=== PATIENT | female | born 1970 | race Caucasian/White ===

== ENCOUNTER 2024-05-23 12:32 | Inpatient (IN) | payer OTHER ==
[~2024-05-23] VITALS: Ht 157.5 cm; Wt 109.3 kg
[2024-05-23 12:37] VITALS: BP 168/126
[2024-05-23 12:57] LABS: BASO % 0.4 % (0.0-1.0); EOS % 0.2 % (1.0-4.0); HEMATOCRIT 46.9 % (37.0-47.0); MEAN CELL VOLUME 87.2 fl (81.0-99.0); MEAN CORPUSCULAR HGB 28.1 pg (27.0-31.0); MEAN CORPUSCULAR HGB CONC 32.2 g/dl (33.0-37.0); MEAN PLATELET VOLUME 9.9 fl (9.6-12.3); MONO # 0.9 10*3/uL (0.1-1.0); MONO % 15.4 % (3.0-9.0); NEUT # 3.4 10*3/uL (2.3-7.9); NEUT % 61.9 % (47.0-73.0); PLATELET COUNT AUTOMATED 295 10*3/uL (130-400); RED BLOOD COUNT 5.38 10*6/uL (4.10-5.10); WHITE BLOOD COUNT 5.5 10*3/uL (4.8-10.8)
[2024-05-23 13:23] LABS: POTASSIUM 2.9 mmol/L (3.4-5.1); TOTAL PROTEIN 7.8 gm/dL (6.0-8.0)
[2024-05-23] MEDS ORDERED: POTASSIUM CHLORIDE 20 MEQ TAB PO ONE (13:40)
[2024-05-23] MEDS ORDERED: Ampicillin Sodium/Sulbactam 3 GM in SODIUM CHLORIDE 0.9% 100 ML IV ONE (14:00)
[2024-05-23] MEDS ORDERED: Ceftriaxone Sodium 1 GM/10 ML SYR IV ONE (14:05)
[2024-05-23] MEDS ORDERED: ASPIRIN ADULT L81 M1 PO (15:03)
[2024-05-23] MEDS ORDERED: VITAMIN D31250 MC2 PO (15:04)
[2024-05-23] MEDS ORDERED: PAROXETINE20 MG PO (15:04)
[2024-05-23] MEDS ORDERED: BISACODYL 10 MG SUPP R PRN (15:05)
[2024-05-23] MEDS ORDERED: Acetaminophen/Hydrocodone 5 MG/325 MG TABLET PO PRN (15:05)
[2024-05-23] MEDS ORDERED: Ondansetron Hydrochloride 4 MG/2 ML VIAL IV PRN (15:05)
[2024-05-23] MEDS ORDERED: Magnesium Hydroxide 30 ML UDC PO PRN (15:05)
[2024-05-23] MEDS ORDERED: MELATONIN ER10 MG PO (15:05)
[2024-05-23] MEDS ORDERED: COZAAR25 M1 PO (15:05)
[2024-05-23] MEDS ORDERED: MEDI-LYTE TABL1 EACH PO (15:05)
[2024-05-23] MEDS ORDERED: ACETAMINOPHEN 325 MG TAB PO PRN (15:05)
[2024-05-23] MEDS ORDERED: ACETAMINOPHEN 650 MG SUPP R PRN (15:05)
[2024-05-23] MEDS ORDERED: BISACODYL 5 MG TAB PO PRN (15:05)
[2024-05-23] MEDS ORDERED: SINGULAIR10 M1 PO (15:06)
[2024-05-23] MEDS ORDERED: PREMPRO 0.625-1 EACH PO (15:07)
[2024-05-23] MEDS ORDERED: ROSUVASTATIN CA40 MG PO (15:07)
[2024-05-23] MEDS ORDERED: SODIUM CHLORIDE 0.9% 1,000 ML IV SCH (15:15)
[2024-05-23] MEDS ORDERED: METRONIDAZOLE 500 MG TAB PO SCH (15:20)
[2024-05-23] MEDS ORDERED: CIPROFLOXACIN 200 ML IV SCH (15:35)
[2024-05-23 16:06] VITALS: BP 90/50
[2024-05-23 21:46] VITALS: BP 96/42
[2024-05-24 04:51] LABS: POTASSIUM 3.7 mmol/L (3.4-5.1); TOTAL PROTEIN 6.7 gm/dL (6.0-8.0)
[2024-05-24 06:09] VITALS: BP 136/68
[2024-05-24 06:26] LABS: BASO % 0.2 % (0.0-1.0); HEMATOCRIT 40.7 % (37.0-47.0); MEAN CELL VOLUME 87.2 fl (81.0-99.0); MEAN CORPUSCULAR HGB 27.8 pg (27.0-31.0); MEAN CORPUSCULAR HGB CONC 31.9 g/dl (33.0-37.0); MEAN PLATELET VOLUME 10.4 fl (9.6-12.3); MONO # 0.7 10*3/uL (0.1-1.0); MONO % 16.3 % (3.0-9.0); NEUT # 2.2 10*3/uL (2.3-7.9); PLATELET COUNT AUTOMATED 264 10*3/uL (130-400); RED BLOOD COUNT 4.67 10*6/uL (4.10-5.10); RED CELL DISTRI WIDTH 12.8 % (0-14.5); WHITE BLOOD COUNT 4.2 10*3/uL (4.8-10.8)
[2024-05-24] MEDS ORDERED: PREDNISONE10 MG PO (07:40)
[2024-05-24] MEDS ORDERED: CLEOCIN HCL150 MG PO (07:40)
[2024-05-24 08:31] LABS: VITAMIN D, 25-HYDROXY 77.3 ng/mL (30-100)
[2024-05-24] MEDS ORDERED: Montelukast Sodium 10 MG TAB PO SCH (10:00)
[2024-05-24] MEDS ORDERED: Losartan Potassium 25 MG TAB PO SCH (10:00)
[2024-05-24] MEDS ORDERED: ASPIRIN, CHEWABLE 81 MG TAB PO SCH (10:00)
[2024-05-24] MEDS ORDERED: Enoxaparin Sodium 40 MG/0.4 ML SYR SC SCH (10:00)
[2024-05-24] MEDS ORDERED: Rosuvastatin Calcium 10 MG TABLET PO SCH (10:00)
== END 2024-05-24 07:52 | disposition home or self-care (01) | DRG 157 ==
LOC: ED 12:32 → EDBD 12:42 → EDHOLD 14:15
PROVIDERS: Emergency Medicine; Student in an Organized Health Care Education/Training Program; ADMIT Internal Medicine; ATTEND Internal Medicine
DX: K12.2 Cellulitis and abscess of mouth (principal); N17.0 Acute kidney failure with tubular necrosis; G90.89 Other disorders of autonomic nervous system; J01.00 Acute maxillary sinusitis, unspecified; S00.83XA Contusion of other part of head, initial encounter; D75.1 Secondary polycythemia; G90.9 Disorder of the autonomic nervous system, unspecified; I10 Essential (primary) hypertension; E86.0 Dehydration; W18.39XA Other fall on same level, initial encounter; R73.9 Hyperglycemia, unspecified; E87.6 Hypokalemia; E78.5 Hyperlipidemia, unspecified; F41.9 Anxiety disorder, unspecified; Z82.49 Family history of ischemic heart disease and other diseases of the circulatory system; Z80.1 Family history of malignant neoplasm of trachea, bronchus and lung; Z88.0 Allergy status to penicillin; Z79.82 Long term (current) use of aspirin; Z79.899 Other long term (current) drug therapy; Y93.89 Activity, other specified; Y92.89 Other specified places as the place of occurrence of the external cause; Y99.8 Other external cause status